=== PATIENT | male | born 1955 | race Caucasian/White ===

== ENCOUNTER 2018-09-27 07:46 | Emergency (ER) | payer MEDICARE, MEDICAID ==
[2018-09-27] MEDS ORDERED: Sodium Chloride 0.9% 10 ML Syringe FLUSH PRN (07:59)
--- NOTE | 2018-09-27 08:22 | CT ---
[id number] CT/CT Head Stroke Protocol EXAM: CT Head Stroke Protocol CLINICAL DATA: STROKE. COMPARISON STUDY: None FINDINGS: No intracranial hemorrhage, extra-axial fluid collection, mass, or acute ischemia. No hydrocephalus. Mild polyploid mucosal thickening in the anterior aspect of the right maxillary sinus. Mastoid air cells middle ear cavities are clear. IMPRESSION: No acute intracranial findings. Results relayed to Dr. Bryant at time of dictation. Nasim Ovalle MD 09/27/18 0819 Thank you for allowing us to participate in the care of your patient.
[2018-09-27 08:56] LABS: CHLORIDE,CL 101 mmol/L (98-107); SODIUM,NA 141 mmol/L (136-145)
[2018-09-27 08:57] LABS: ANION GAP 10.6 mmol/L (10-20)
--- NOTE | 2018-09-27 09:02 | EDM.PDOC ---
ED HPI GENERAL MEDICAL PROBLEM - General Chief Complaint: Neuro Symptoms/Deficits Stated Complaint: WEAKNESS Time Seen by Provider: 09/27/18 07:59 Source of Information: Reports: Patient History Limitations: Reports: Other (paranoia) - History of Present Illness INITIAL COMMENTS - FREE TEXT/NARRATIVE: Patient presents with complaints of weakness, slurred speech, facial droop. All of these symptoms were not present on his arrival. Also complains of what he described as explosions in his head. Also complained of staff at the care center "poisoning" him. He does have extensive history of schizoaffective disorder. No chest pain, abdominal pain, sob, blood in urine or stools. Denies any other complaints. States he does not want to go back to the care center. Onset: Gradual Chest Pain Score (Numeric/FACES): 6 - Related Data Allergies Allergy/AdvReac Type Severity Reaction Status Date / Time clozapine [From Clozaril] Allergy Shaking Verified 09/27/18 08:59 gabapentin Allergy Rash Verified 09/27/18 08:59 risperidone AdvReac Other Verified 09/27/18 08:59 Home Meds: Home Meds Acetaminophen [Tylenol Arthritis] 1,300 mg PO BID 09/27/18 [History] Aripiprazole Lauroxil [Aristada] 882 mg IM Q42D 09/27/18 [History] Bisacodyl [Dulcolax] 5 mg PO DAILY PRN 09/27/18 [History] Furosemide 40 mg PO DAILY 09/27/18 [History] Hydrocodone/Acetaminophen [Hydrocodon-Acetaminophen 5-325] 1 tab PO TID [History] Loperamide HCl [Imodium A-D] 2 mg PO ASDIRECTED PRN MDD 8mg in 24 hours [History] Nystatin [Nyamyc] 1 applic TOP BID PRN 09/27/18 [History] Paliperidone [Paliperidone ER] 1.5 mg PO DAILY 09/27/18 [History] Polyethylene Glycol 3350 [MiraLAX] 17 gm PO DAILY 09/27/18 [History] Pregabalin [Lyrica] 200 mg PO TID 09/27/18 [History] Sennosides/Docusate Sodium [Senna Plus Tablet] 1 tab PO DAILY 09/27/18 [History] Tamsulosin HCl [Flomax] 0.4 mg PO DAILY 09/27/18 [History] atorvaSTATin [Lipitor] 10 mg PO BEDTIME 09/27/18 [History] busPIRone [Buspar] 10 mg PO TID 09/27/18 [History] metOLazone [Metolazone] 2.5 mg PO MOWEFR@0800 09/27/18 [History] traZODone HCl [Trazodone HCl] 50 mg PO DAILY 09/27/18 [History] ED ROS GENERAL - Review of Systems Review Of Systems: See Below Constitutional: Reports: Weakness HEENT: Reports: No Symptoms ED EXAM, GENERAL - Physical Exam Exam: See Below Exam Limited By: Other (paranoia) General Appearance: Alert, WD/WN, No Apparent Distress Eye Exam: Bilateral Eye: EOMI, Normal Inspection, PERRL Ears: Normal TMs Nose: Normal Inspection, Normal Mucosa, No Blood Throat/Mouth: Normal Inspection, Normal Lips, Normal Teeth, Normal Gums, Normal Oropharynx, Normal Voice, No Airway Compromise Head: Atraumatic, Normocephalic Neck: Normal Inspection, Supple, Non-Tender, Full Range of Motion Respiratory/Chest: No Respiratory Distress, Lungs Clear, Normal Breath Sounds, No Accessory Muscle Use, Chest Non-Tender Cardiovascular: Normal Peripheral Pulses, No Gallop, No Murmur, Tachycardia Peripheral Pulses: 1+: Posterior Tibial (L), Posterior Tibial (R), Dorsalis Pedis (L), Dorsalis Pedis (R) GI/Abdominal: Normal Bowel Sounds, Soft, Non-Tender, No Organomegaly, No Distention, No Abnormal Bruit, No Mass Back Exam: Normal Inspection, Full Range of Motion, NT Extremities: Normal Range of Motion, Non-Tender, Normal Capillary Refill, Pedal Edema (2-3+) Neurological: Alert, Oriented, CN II-XII Intact, Normal Cognition, Normal Gait, No Motor/Sensory Deficits Psychiatric: Other (paranoid) Skin Exam: Erythema (bilateral lower legs) Lymphatic: No Adenopathy EKG INTERPRETATION EKG Date: 09/27/18 Time: 08:14 Rhythm: Other (sinus tach) Rate (Beats/Min): 105 [place]: Normal P-Wave: Present QRS: Normal ST-T: Normal QT: Normal Comparison: NA - No Prior EKG Course - Vital Signs Last Recorded V/S: Last Vital Signs Temp 36.6 C 09/27/18 08:00 Pulse 106 H 09/27/18 08:00 Resp 18 09/27/18 08:00 BP 141/72 H 09/27/18 08:00 Pulse Ox 95 09/27/18 08:00 - Orders/Labs/Meds Orders: Active Orders 24 hr Category Date Time Status EKG Documentation Completion [RC] STAT Care 09/27/18 07:59 Active Sodium Chloride 0.9% [Saline Flush] Med 09/27/18 07:59 Active 10 ml FLUSH ASDIRECTED PRN Saline Lock Insert [OM.PC] Routine Oth 09/27/18 07:59 Ordered Medication Orders Sodium Chloride (Saline Flush) 10 ml FLUSH ASDIRECTED PRN PRN Reason: Keep Vein Open Labs: Laboratory Tests 09/27/18 09/27/18 09/27/18 Range/Units 08:00 08:18 08:18 WBC 6.6 (4.0-10.0) x10^3/uL RBC 4.31 L (4.5-6.0) x10^6/uL Hgb 13.7 L (14.0-18.0) g/dL Hct 40.6 (40.0-52.0) % MCV 94.2 H (78.0-93.0) fL MCH 31.8 (26.0-32.0) pg MCHC 33.7 (32.0-36.0) g/dL RDW Coeff of Damon 12.8 (10.0-15.0) % Plt Count 262 (130-400) x10^3/uL Neut % (Auto) 64.6 (50.0-80.0) % Lymph % (Auto) 25.1 (25.0-50.0) % Bled[place]e % (Auto) 8.3 (2.0-11.0) % Eos % (Auto) 1.5 (0.0-4.0) % Baso % (Auto) 0.5 (0.2-1.2) % PT 10.0 (10.0-12.8) SEC INR 0.9 L (2.0-3.5) Sodium (136-145) mmol/L Potassium (3.5-5.1) mmol/L Chloride (98-107) mmol/L Carbon Dioxide (21-32) mmol/L Anion Gap (10-20) mmol/L BUN (7-18) mg/dL Creatinine (0.70-1.30) mg/dL Est Cr Clr Drug Dosing Estimated GFR (MDRD) Glucose (74-106) mg/dL POC Glucose 130 H (74-106) mg/dL Calcium (8.5-10.1) mg/dL Corrected Calcium (8.5-10.1) mg/dL Magnesium (1.8-2.4) mg/dL Total Bilirubin (0.2-1.0) mg/dL AST (15-37) U/L ALT (16-63) U/L Alkaline Phosphatase (46-116) U/L POC Troponin I (0.00-0.08) ng/mL C-Reactive Protein (<=0.9) mg/dL NT-Pro-B Natriuret Pep (<=125) pg/mL Total Protein (6.4-8.2) g/dL Albumin (3.4-5.0) g/dL Globulin Albumin/Globulin Ratio TSH, Ultra Sensitive (0.358-3.74) uIU/mL Urine Color (YELLOW) Urine Appearance (CLEAR) Urine pH (5.0-8.0) Ur Specific [place] Urine Protein (NEGATIVE) mg/dL Urine Glucose (UA) (NEGATIVE) mg/dL Urine Ketones (NEGATIVE) mg/dL Urine Occult Blood (NEGATIVE) Urine Nitrite (NEGATIVE) Urine Bilirubin (NEGATIVE) Urine Urobilinogen (0.2) EU/dL Ur Leukocyte Esterase (NEGATIVE) Urine RBC (NOT SEEN) /HPF Urine WBC (NOT SEEN) /HPF Ur Squamous Epith Cells (NEGATIVE) /HPF Urine Bacteria (NEGATIVE) /HPF Urine Mucus (NEGATIVE) /LPF 09/27/18 09/27/18 09/27/18 Range/Units 08:18 08:24 08:45 WBC (4.0-10.0) x10^3/uL RBC (4.5-6.0) x10^6/uL Hgb (14.0-18.0) g/dL Hct (40.0-52.0) % MCV (78.0-93.0) fL MCH (26.0-32.0) pg MCHC (32.0-36.0) g/dL RDW Coeff of Damon (10.0-15.0) % Plt Count (130-400) x10^3/uL Neut % (Auto) (50.0-80.0) % Lymph % (Auto) (25.0-50.0) % [place]so[place] % (Auto) (2.0-11.0) % Eos % (Auto) (0.0-4.0) % Baso % (Auto) (0.2-1.2) % PT (10.0-12.8) SEC INR (2.0-3.5) Sodium 141 (136-145) mmol/L Potassium 3.6 (3.5-5.1) mmol/L Chloride 101 (98-107) mmol/L Carbon Dioxide 33 H (21-32) mmol/L Anion Gap 10.6 (10-20) mmol/L BUN 25 H (7-18) mg/dL Creatinine 1.0 (0.70-1.30) mg/dL Est Cr Clr Drug Dosing TNP Estimated GFR (MDRD) > 60 Glucose 131 H (74-106) mg/dL POC Glucose (74-106) mg/dL Calcium 8.8 (8.5-10.1) mg/dL Corrected Calcium 9.36 (8.5-10.1) mg/dL Magnesium 2.2 (1.8-2.4) mg/dL Total Bilirubin 0.3 (0.2-1.0) mg/dL AST 19 (15-37) U/L ALT 25 (16-63) U/L Alkaline Phosphatase 65 (46-116) U/L POC Troponin I 0.00 (0.00-0.08) ng/mL C-Reactive Protein 1.8 H (<=0.9) mg/dL NT-Pro-B Natriuret Pep 26 (<=125) pg/mL Total Protein 6.5 (6.4-8.2) g/dL Albumin 3.3 L (3.4-5.0) g/dL Globulin 3.2 Albumin/Globulin Ratio 1.03 TSH, Ultra Sensitive 1.533 (0.358-3.74) uIU/mL Urine Color Yellow (YELLOW) Urine Appearance Clear (CLEAR) Urine pH 7.0 (5.0-8.0) Ur Specific [place] 1.015 Urine Protein Negative (NEGATIVE) mg/dL Urine Glucose (UA) Negative (NEGATIVE) mg/dL Urine Ketones Negative (NEGATIVE) mg/dL Urine Occult Blood Trace-intact H (NEGATIVE) Urine Nitrite Negative (NEGATIVE) Urine Bilirubin Negative (NEGATIVE) Urine Urobilinogen 1.0 (0.2) EU/dL Ur Leukocyte Esterase Negative (NEGATIVE) Urine RBC 5-10 H (NOT SEEN) /HPF Urine WBC 0-5 (NOT SEEN) /HPF Ur Squamous Epith Cells Occasional H (NEGATIVE) /HPF Urine Bacteria Not seen (NEGATIVE) /HPF Urine Mucus Occasional H (NEGATIVE) /LPF Meds: Medications Generic Name Dose Route Start Last Admin Trade Name Freq PRN Reason Stop Dose Admin Sodium Chloride 10 ml 09/27/18 07:59 Saline Flush FLUSH ASDIRECTED PRN Keep Vein Open Departure - Departure Time of Disposition: 10:43 Disposition: DC/Tfer to SNF 03 Condition: Fair Clinical Impression: Drug interaction, Acute paranoia - Discharge Information *PRESCRIPTION DRUG MONITORING PROGRAM REVIEWED*: Not Applicable *COPY OF PRESCRIPTION DRUG MONITORING REPORT IN PATIENT [place]: Not Applicable Instructions: Basics of Medicine Management Forms: ED Department Discharge Additional Instructions: Plan Schedule an appointment with Dr. Rodriguez for any placement issues Talk with Dr. Rodriguez regarding medication interactions Your labs here were normal, as was your head CT. Staff can call at any time if there are any additional questions or concerns ED Communication - ED Communication Date/Time Date: 09/27/18 Time Called: 08:40 - Discussed Case With (1) Discussed Case With (1): Other (Patient's primary physician contacted and given report. Will not treat for TIA due to non symptomatic history and physical. [facility] hospital screener also contacted. Not candidate for direct admission. Guardian services also contacted and she did manage to get him to agree to return to Care Center. Patient reassured that he is not getting poisoned.) - Problem List & Annotations (1) Drug interaction SNOMED Code(s): 97102060 Code(s): Z78.9 - OTHER SPECIFIED HEALTH STATUS Status: Acute Priority: Low Current Visit: Yes - Problem List Review Problem List Initiated/Reviewed/Updated: Yes - My Orders Last 24 Hours: My Active Orders 09/27/18 07:59 EKG Documentation Completion [RC] STAT Sodium Chloride 0.9% [Saline Flush] 10 ml FLUSH ASDIRECTED PRN Saline Lock Insert [OM.PC] Routine - Assessment/Plan Last 24 Hours: My Active Orders 09/27/18 07:59 EKG Documentation Completion [RC] STAT Sodium Chloride 0.9% [Saline Flush] 10 ml FLUSH ASDIRECTED PRN Saline Lock Insert [OM.PC] Routine Assessment:: drug interaction paranoia Plan: Plan Schedule an appointment with Dr. Rodriguez for any placement issues Talk with Dr. Rodriguez regarding medication interactions Your labs here were normal, as was your head CT. Staff can call at any time if there are any additional questions or concerns
== END 2018-09-27 10:43 ==
LOC: VM.ED 07:46 → SUPCPDRO 07:46 → VM.ED 10:43
DX: F22 Delusional disorders (principal); Z78.9 Other specified health status; Z88.8 Allergy status to other drugs, medicaments and biological substances; Z79.899 Other long term (current) drug therapy; R29.810 Facial weakness
CPT/HCPCS: 70450; 80053; 81001; 82962; 83735; 83880; 84443; 84484; 85025; 85610; 86140; 93005; 93010; 99283-GF; 99285-25

== ENCOUNTER 2018-10-12 10:35 | Emergency (ER) | payer MEDICARE, MEDICAID ==
[2018-10-12 11:33] LABS: CHLORIDE,CL 102 mmol/L (98-107); SODIUM,NA 142 mmol/L (136-145)
[2018-10-12 11:34] LABS: ANION GAP 12.3 mmol/L (10-20)
--- NOTE | 2018-10-12 11:42 | CR ---
[id number] RAD/RAD Chest PA or AP 1V EXAM: RAD Chest PA or AP 1V INDICATION: Chest pain. COMPARISON: None. DISCUSSION: Cardiomegaly and central vascular congestion. No infiltrate, effusion, pneumothorax, or edema within limitation of beam attenuation artifact from patient body habitus. IMPRESSION: No acute findings. Nasim Ovalle MD 10/12/18 1141 Thank you for allowing us to participate in the care of your patient.
--- NOTE | 2018-10-12 16:52 | EDM.PDOC ---
ED HPI GENERAL MEDICAL PROBLEM - General Chief Complaint: Chest Pain Stated Complaint: CHEST PAIN Time Seen by Provider: 10/12/18 10:35 Source of Information: Reports: Patient History Limitations: Reports: No Limitations - History of Present Illness INITIAL COMMENTS - FREE TEXT/NARRATIVE: Pt. presents to ER from clinic. He is a resident at [facility]. He was sent to clinic for possible cellulitis to his extremities and stated that he was having chest pain so he was sent to the ER. Pt. states that he has been experiencing intermittent, L anterior reproducible, respirophasic chest pain for some time. He states that this discomfort is worse with movement, deep breathing, and palpation. He states that it is sharp, point tenderness to L anterior chest. Pt. denies any shortness of breath. No fever or chills. Denies any cough or chest congestion. Pt. has been having problem with severe edema on his lower extremities. Nursing staff is concerned that he may have a cellulitis in the LLE below the knee. Apparently the skin is more erythematous than normal. In reviewing his chart, it appears that Dr. Rodriguez has seen him for similar complaints in the clinic. He is on lasix 40mg daily and metolazone 2.5mg daily, as well as spironolactone 25 mg daily. This has not helped with the symptoms. He has been trying to wrap his legs but they were absent today. Pt. body habitus does not allow for LILI hose use. Pt. has had labs recently, and his heart and kidney functions appears to be normal. Likely cause of the edema is obesity related lymphedema. Onset: Today Onset Date: 10/13/18 Location: Reports: Chest, Lower Extremity, Left, Lower Extremity, Right Quality: Reports: Ache Left Chest Pain Score (Numeric/FACES): 5 - Related Data Allergies Allergy/AdvReac Type Severity Reaction Status Date / Time clozapine [From Clozaril] Allergy Shaking Verified 10/12/18 11:07 gabapentin Allergy Rash Verified 10/12/18 11:07 risperidone AdvReac Other Verified 10/12/18 11:07 Home Meds: Home Meds Acetaminophen [Tylenol Arthritis] 1,300 mg PO BID 09/27/18 [History] Aripiprazole Lauroxil [Aristada] 882 mg IM Q42D 09/27/18 [History] Bisacodyl [Dulcolax] 5 mg PO DAILY PRN 09/27/18 [History] Furosemide 40 mg PO DAILY 09/27/18 [History] Hydrocodone/Acetaminophen [Hydrocodon-Acetaminophen 5-325] 1 tab PO QID [History] Loperamide HCl [Imodium A-D] 2 mg PO ASDIRECTED PRN MDD 8mg in 24 hours [History] Nystatin [Nyamyc] 1 applic TOP BID PRN 09/27/18 [History] Paliperidone [Paliperidone ER] 6 mg PO DAILY 09/27/18 [History] Polyethylene Glycol 3350 [MiraLAX] 17 gm PO DAILY 09/27/18 [History] Pregabalin [Lyrica] 200 mg PO TID 09/27/18 [History] Sennosides/Docusate Sodium [Senna Plus Tablet] 1 tab PO DAILY 09/27/18 [History] Tamsulosin HCl [Flomax] 0.4 mg PO DAILY 09/27/18 [History] atorvaSTATin [Lipitor] 10 mg PO BEDTIME 09/27/18 [History] busPIRone [Buspar] 10 mg PO TID 09/27/18 [History] metOLazone [Metolazone] 2.5 mg PO MOWEFR@0800 09/27/18 [History] traZODone HCl [Trazodone HCl] 50 mg PO DAILY 09/27/18 [History] Spironolactone [Aldactone] 25 mg PO DAILY 10/12/18 [History] metOLazone [Metolazone] 2.5 mg PO ASDIRECTED 10/12/18 [History] Past Medical History Cardiovascular History: Reports: High Cholesterol, Hypertension Gastrointestinal History: Reports: Chronic Constipation Musculoskeletal History: Reports: Back Pain, Chronic, Osteoarthritis Psychiatric History: Reports: Addiction, Anxiety, Psychosis, Schizophrenia Other Psychiatric History: personality disorder Social & Family History - Tobacco Use Smoking Status *Q: Unknown Ever Smoked ED ROS GENERAL - Review of Systems Review Of Systems: See Below Constitutional: Reports: Fatigue (chronically fatigued). Denies: Fever, Chills HEENT: Reports: No Symptoms Respiratory: Reports: Pleuritic Chest Pain. Denies: Cough, Sputum Cardiovascular: Reports: Chest Pain. Denies: Dyspnea on Exertion, Palpitations , PND, Syncope Endocrine: Reports: No Symptoms GI/Abdominal: Reports: No Symptoms : Reports: No Symptoms Musculoskeletal: Reports: Other (See above) Skin: Reports: Erythema Neurological: Reports: No Symptoms Psychiatric: Reports: No Symptoms Hematologic/Lymphatic: Reports: No Symptoms ED EXAM, GENERAL - Physical Exam Exam: See Below Exam Limited By: No Limitations General Appearance: Alert, WD/WN, No Apparent Distress Neck: Normal Inspection, Supple, Non-Tender, Full Range of Motion Respiratory/Chest: No Respiratory Distress, Lungs Clear, Normal Breath Sounds, No Accessory Muscle Use, Other (tenderness to L anterior chest) Cardiovascular: Normal Peripheral Pulses, Regular Rate, Rhythm, No Edema, No JVD , No Murmur, No Rub Peripheral Pulses: 1+: Posterior Tibial (L), Posterior Tibial (R), 4+: Radial (L ) Back Exam: Normal Inspection, Full Range of Motion Extremities: Other (massive lymphedema. Erythema from mid calf down, with no open lesions. L leg mildly more erythematous and warm.) Neurological: Alert, Oriented, CN II-XII Intact, Normal Cognition EKG INTERPRETATION Rhythm: NSR [place]: Normal P-Wave: Present QRS: Normal ST-T: Normal QT: Normal Course - Vital Signs Last Recorded V/S: Last Vital Signs Temp 36.4 C 10/12/18 10:35 Pulse 94 10/12/18 10:35 Resp 20 10/12/18 10:35 BP 147/93 H 10/12/18 10:35 Pulse Ox 95 10/12/18 10:35 - Orders/Labs/Meds Orders: Active Orders 24 hr Category Date Time Status EKG Documentation Completion [RC] STAT Care 10/12/18 10:45 Active Labs: Laboratory Tests 10/12/18 10/12/18 10/12/18 Range/Units 10:58 10:58 10:58 WBC 6.5 (4.0-10.0) x10^3/uL RBC 4.34 L (4.5-6.0) x10^6/uL Hgb 13.8 L (14.0-18.0) g/dL Hct 41.3 (40.0-52.0) % MCV 95.2 H (78.0-93.0) fL MCH 31.8 (26.0-32.0) pg MCHC 33.4 (32.0-36.0) g/dL RDW Coeff of Damon 13.3 (10.0-15.0) % Plt Count 254 (130-400) x10^3/uL Neut % (Auto) 65.9 (50.0-80.0) % Lymph % (Auto) 24.8 L (25.0-50.0) % [place] % (Auto) 7.6 (2.0-11.0) % Eos % (Auto) 1.4 (0.0-4.0) % Baso % (Auto) 0.3 (0.2-1.2) % PT 9.9 L (10.0-12.8) SEC INR 0.9 L (2.0-3.5) Sodium 142 (136-145) mmol/L Potassium 4.3 (3.5-5.1) mmol/L Chloride 102 (98-107) mmol/L Carbon Dioxide 32 (21-32) mmol/L Anion Gap 12.3 (10-20) mmol/L BUN 25 H (7-18) mg/dL Creatinine 1.1 (0.70-1.30) mg/dL Est Cr Clr Drug Dosing TNP Estimated GFR (MDRD) > 60 Glucose 117 H (74-106) mg/dL Calcium 8.7 (8.5-10.1) mg/dL Corrected Calcium 9.26 (8.5-10.1) mg/dL Total Bilirubin 0.3 (0.2-1.0) mg/dL AST 16 (15-37) U/L ALT 27 (16-63) U/L Alkaline Phosphatase 68 (46-116) U/L Troponin I < 0.017 (<=0.056) ng/mL C-Reactive Protein 1.7 H (<=0.9) mg/dL NT-Pro-B Natriuret Pep 41 (<=125) pg/mL Total Protein 7.0 (6.4-8.2) g/dL Albumin 3.3 L (3.4-5.0) g/dL Globulin 3.7 Albumin/Globulin Ratio 0.89 - Radiology Interpretation Free Text/Narrative:: chest x-ray negative for acute pathology Departure - Departure Time of Disposition: 12:30 Disposition: DC/Tfer to [facility] Clinical Impression: Atypical chest pain, Cellulitis - Discharge Information Instructions: Cellulitis, Adult, [id number], Lymphedema, Cephalexin tablets or capsules, Probiotics Referrals: Olvin Rodriguez MD [Primary Care Provider] - Forms: ED Department Discharge Additional Instructions: Start Keflex 500mg 4 times daily for 10 days Wrap legs. Continue with current medications at current dosages. Recheck in clinic in 10-[address] Rodriguez. - My Orders Last 24 Hours: My Active Orders 10/12/18 10:45 EKG Documentation Completion [RC] STAT - Assessment/Plan Last 24 Hours: My Active Orders 10/12/18 10:45 EKG Documentation Completion [RC] STAT Plan: Start Keflex 500mg 4 times daily for 10 days Wrap legs. Continue with current medications at current dosages. Recheck in clinic in 10-[address] Rodriguez.
== END 2018-10-12 11:49 ==
LOC: VM.ED 10:35
DX: R07.89 Other chest pain (principal); L03.116 Cellulitis of left lower limb; I10 Essential (primary) hypertension; M19.90 Unspecified osteoarthritis, unspecified site; F41.9 Anxiety disorder, unspecified; Z88.8 Allergy status to other drugs, medicaments and biological substances; Z79.899 Other long term (current) drug therapy
CPT/HCPCS: 36415; 71045; 80053; 83880; 84484; 85025; 85610; 86140; 93005; 93010; 99284-GF; 99285-25

== ENCOUNTER 2018-11-02 07:56 | Emergency (ER) | payer MEDICARE, MEDICAID ==
[2018-11-02] MEDS ORDERED: Acetaminophen 500 MG Tab PO ONE (08:35)
--- NOTE | 2018-11-02 08:45 | EDM.PDOC ---
ED HPI GENERAL MEDICAL PROBLEM - General Chief Complaint: Syncope Stated Complaint: lightheadedness Time Seen by Provider: 11/02/18 08:05 Source of Information: Reports: Patient History Limitations: Reports: No Limitations - History of Present Illness INITIAL COMMENTS - FREE TEXT/NARRATIVE: Patient states this morning at assisted living care who got up fixed cup coffee about 20 minutes later he got lightheaded states she has had this before a few times he was just in here a month ago the same exact thing in the ER. States his symptoms are always same first thing in the morning. They last anywhere from 20 minutes to an hour limit resolve spontaneously. States he did not want come this morning but the prison made him come he does not want any lab work or workup done this morning he has no other complaints at this time. No chest pain shortness of breath vomiting abdominal pain dizziness or vision changes states he feels fine overall Duration: Hour(s): Severity: Mild Improves with: Reports: None Associated Symptoms: Reports: Headaches, Other (O by the way patient does have a headache but a 3 out of 10 generalized states he gets chronic headaches couple days a week usually go away by the hour after drinking coffee he also has chronic back pain rated a 9 out of 10 this point is not a daily pain meds) Treatments [employer]: Denies: Acetaminophen, Aspirin, NSAIDS - Related Data Allergies Allergy/AdvReac Type Severity Reaction Status Date / Time clozapine [From Clozaril] Allergy Shaking Verified 11/02/18 08:28 gabapentin Allergy Rash Verified 11/02/18 08:28 risedronate sodium Allergy Other Verified 11/02/18 08:28 risperidone AdvReac Other Verified 11/02/18 08:28 Home Meds: Home Meds Acetaminophen [Tylenol Arthritis] 1,300 mg PO BID 09/27/18 [History] Aripiprazole Lauroxil [Aristada] 882 mg IM Q42D 09/27/18 [History] Furosemide 40 mg PO DAILY 09/27/18 [History] Hydrocodone/Acetaminophen [Hydrocodon-Acetaminophen 5-325] 1 tab PO TID [History] Paliperidone [Paliperidone ER] 6 mg PO DAILY 09/27/18 [History] Polyethylene Glycol 3350 [MiraLAX] 17 gm PO DAILY 09/27/18 [History] Pregabalin [Lyrica] 200 mg PO TID 09/27/18 [History] Tamsulosin HCl [Flomax] 0.4 mg PO BEDTIME 09/27/18 [History] atorvaSTATin [Lipitor] 10 mg PO BEDTIME 09/27/18 [History] busPIRone [Buspar] 10 mg PO TID 09/27/18 [History] metOLazone [Metolazone] 2.5 mg PO MOWEFR@0800 09/27/18 [History] traZODone HCl [Trazodone HCl] 50 mg PO DAILY 09/27/18 [History] ARIPiprazole [Abilify] 30 mg PO BEDTIME 10/17/18 [History] Acetaminophen [Arthritis Pain Relief] 1,300 mg PO DAILY PRN 10/17/18 [History] Docusate Sodium 100 mg PO BID 10/17/18 [History] Ibuprofen 200 - 600 mg PO Q6H PRN 10/17/18 [History] LORazepam 1 mg PO QID 10/17/18 [History] Naproxen 500 mg PO BID 10/17/18 [History] Psyllium Husk [Metamucil] 17 gm PO DAILY 10/17/18 [History] Past Medical History Cardiovascular History: Reports: High Cholesterol, Hypertension Gastrointestinal History: Reports: Chronic Constipation Musculoskeletal History: Reports: Back Pain, Chronic, Osteoarthritis Psychiatric History: Reports: Addiction, Anxiety, Psychosis, Schizophrenia Other Psychiatric History: personality disorder ED ROS GENERAL - Review of Systems Review Of Systems: See Below Constitutional: Denies: Fever, Chills, Malaise, Weakness, Fatigue, Diaphoresis HEENT: Reports: No Symptoms Respiratory: Reports: No Symptoms Cardiovascular: Reports: Lightheadedness, Other ( complaint from the prison that patient was hypotensive with the 90s but upon EMS arrival he was normotensive). Denies: Chest Pain, Blood Pressure Problem, Claudication, Dyspnea on Exertion, Edema, Orthopnea, Palpitations, PND, Syncope Endocrine: Reports: No Symptoms GI/Abdominal: Reports: No Symptoms : Reports: No Symptoms Musculoskeletal: Reports: Back Pain (Chronic) Skin: Reports: No Symptoms Neurological: Reports: Headache (Dull generalized no change from prior headaches not the worst headache overall of his life no vision changes no weakness states this occurs several mornings out of the week clears up after a cup of coffee and morning meds). Denies: Confusion, Dizziness, Seizure, Syncope , Difficulty Walking Psychiatric: Reports: No Symptoms Hematologic/Lymphatic: Reports: No Symptoms Immunologic: Reports: No Symptoms ED EXAM, DIZZINESS - Physical Exam Exam: See Below Exam Limited By: No Limitations General Appearance: Alert, WD/WN, No Apparent Distress Eye Exam: Bilateral Eye: EOMI, PERRL Ears: Normal External Exam, Normal Canal, Hearing Grossly Normal, Normal TMs Nose: Normal Inspection, Normal Mucosa, No Blood Throat/Mouth: Normal Inspection, Normal Lips, Normal Teeth, Normal Gums, Normal Oropharynx, Normal Voice, No Airway Compromise Head Exam: Atraumatic, Normocephalic Vertigo: No: worsens with head to L, worsens with head to R, reproducible Neck: Normal Inspection, Supple, Non-Tender, Full Range of Motion Respiratory/Chest: No Respiratory Distress, Lungs Clear, Normal Breath Sounds, No Accessory Muscle Use, Chest Non-Tender Cardiovascular: Normal Peripheral Pulses, Regular Rate, Rhythm, No Edema, No Gallop, No JVD, No Murmur, No Rub GI/Abdominal: Normal Bowel Sounds, Soft, Non-Tender, No Organomegaly, No Distention Neurological: Alert, Normal Mood/Affect, Normal Dorsiflexion, CN II-XII Intact, Normal Plantar Flexion (Cranial nerve II through XII intact, 5/5 strength upper and lower extremities bilateral 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), Normal Gait , Normal Reflexes, No Motor/Sensory Deficits, Oriented x 3 Back Exam: Normal Inspection, Full Range of Motion Extremities: Normal Inspection, Normal Range of Motion, Non-Tender, No Pedal Edema Psychiatric: Normal Affect, Normal Mood Skin Exam: Warm, Dry, Intact, Normal Color, No Rash Course - Vital Signs Text/Narrative:: Patient refused care and further workup such as lab further testing states he only wishes to go home explain risks benefits patient still no further workup just wanted to go back [facility] prison - Orders/Labs/Meds Orders: Active Orders 24 hr Category Date Time Status EKG 12 Lead [EKG Documentation Completion] [RC] STAT Care 11/02/18 08:34 Ordered BASIC METABOLIC PANEL,BMP [CHEM] Stat Lab 11/02/18 08:34 Ordered CBC WITH AUTO DIFF [HEME] Stat Lab 11/02/18 08:34 Ordered Meds: Medications Discontinued Medications Generic Name Dose Route Start Last Admin Trade Name Freq PRN Reason Stop Dose Admin Acetaminophen 1,000 mg 11/02/18 08:35 Tylenol Extra Strength PO 11/02/18 08:36 ONETIME ONE Departure - Departure Time of Disposition: 08:50 Disposition: Home, Self-Care 01 Condition: Good Clinical Impression: Lightheadedness - Discharge Information *PRESCRIPTION DRUG MONITORING PROGRAM REVIEWED*: No *COPY OF PRESCRIPTION DRUG MONITORING REPORT IN PATIENT [place]: No - My Orders Last 24 Hours: My Active Orders 11/02/18 08:34 EKG 12 Lead [EKG Documentation Completion] [RC] STAT BASIC METABOLIC PANEL,BMP [CHEM] Stat CBC WITH AUTO DIFF [HEME] Stat - Assessment/Plan Last 24 Hours: My Active Orders 11/02/18 08:34 EKG 12 Lead [EKG Documentation Completion] [RC] STAT BASIC METABOLIC PANEL,BMP [CHEM] Stat CBC WITH AUTO DIFF [HEME] Stat
== END 2018-11-02 09:30 | disposition home or self-care (01) ==
LOC: VM.ED 07:56
DX: R42 Dizziness and giddiness (principal); I10 Essential (primary) hypertension; F41.9 Anxiety disorder, unspecified; F20.9 Schizophrenia, unspecified; Z88.8 Allergy status to other drugs, medicaments and biological substances; Z79.899 Other long term (current) drug therapy
CPT/HCPCS: 93005; 99284-25

== ENCOUNTER 2022-03-28 11:45 | Emergency (ER) | payer MEDICARE, MEDICAID ==
[2022-03-28 13:44] LABS: ANION GAP 11.4 mmol/L (5-15); CHLORIDE,CL 100 mmol/L (98-107); ESTIMATED GFR 61 mL/min (>=60); SODIUM,NA 138 mmol/L (136-145)
[2022-03-28] MEDS: Morphine 2 MG/ML SYRINGE IVPUSH ONE (13:59)
== END 2022-03-28 15:46 ==
LOC: VM.ED 11:45
DX: M79.661 Pain in right lower leg (principal); E78.00 Pure hypercholesterolemia, unspecified; I10 Essential (primary) hypertension; M19.90 Unspecified osteoarthritis, unspecified site; Z88.8 Allergy status to other drugs, medicaments and biological substances; Z79.899 Other long term (current) drug therapy; Z20.822 Contact with and (suspected) exposure to COVID-19
CPT/HCPCS: 36415; 80053; 85025; 85379; 85610; 87040; 96374; 99283-25; 99284; J2270; U0002

== ENCOUNTER 2023-09-01 01:05 | Emergency (ER) | payer MEDICARE, MEDICAID ==
[2023-09-01 01:32] LABS: BASOPHILS PERCENT AUTO 0.2 % (0.2-1.2); EOSINOPHILS ABSOLUTE AUTO 0.1 x10^3/uL (0.0-0.5); EOSINOPHILS PERCENT AUTO 1.2 % (0.0-4.0); HEMATOCRIT 38.1 % (40.0-52.0); HEMOGLOBIN 12.9 g/dL (14.0-18.0); IMMATURE GRAN ABSOLUTE AUTO 0.02 x10^3/uL (0.00-0.07); LYMPHOCYTES ABSOLUTE AUTO 2.5 x10^3/uL (1.0-4.8); LYMPHOCYTES PERCENT AUTO 22.1 % (25.0-50.0); MEAN CORPUSCULAR HGB CONC 33.9 g/dL (32.0-36.0); MEAN CORPUSCULAR VOLUME 91.6 fL (78.0-93.0); MONOCYTES ABSOLUTE AUTO 0.7 x10^3/uL (0.0-0.8); MONOCYTES PERCENT AUTO 5.9 % (2.0-11.0); NEUTROPHILS ABSOLUTE AUTO 7.8 x10^3/uL (1.8-7.7); NEUTROPHILS PERCENT AUTO 70.4 % (50.0-80.0); PLATELET COUNT,PLT 287 x10^3/uL (130-400); RED BLOOD CELL COUNT 4.16 x10^6/uL (4.5-6.0); WHITE BLOOD CELL COUNT,WBC 11.1 x10^3/uL (4.0-10.0)
[2023-09-01 01:45] LABS: CALCIUM 9.3 mg/dL (8.5-10.1); CREATININE 1.8 mg/dL (0.70-1.30); EST CRCL DRUG DOSING (CG) 39.06 mL/min; POTASSIUM,K 4.2 mmol/L (3.5-5.1)
[2023-09-01 01:46] LABS: ANION GAP 11.2 mmol/L (5-15)
[2023-09-01] MEDS: Acetaminophen/oxyCODONE 325-5 MG Tab PO ONE (02:32)
== END 2023-09-01 03:25 ==
LOC: VM.ED 01:05
DX: R07.2 Precordial pain (principal); M25.561 Pain in right knee; M25.562 Pain in left knee; M25.551 Pain in right hip; I10 Essential (primary) hypertension; E78.00 Pure hypercholesterolemia, unspecified; E11.9 Type 2 diabetes mellitus without complications; Z88.8 Allergy status to other drugs, medicaments and biological substances; Z88.1 Allergy status to other antibiotic agents; Z79.899 Other long term (current) drug therapy
CPT/HCPCS: 36415; 71045; 73501; 73560; 80048; 84484; 85025; 99285; A9270

== ENCOUNTER 2023-10-21 17:39 | Inpatient (IN) | payer MEDICARE, MEDICAID ==
[2023-10-21] MEDS: cefTRIAXone 1 GM Vial IVPUSH ONE (19:29)
[2023-10-21] MEDS ORDERED: HYDROmorphone 0.5 MG/0.5 ML Syringe IVPUSH PRN (19:55)
[2023-10-21] MEDS ORDERED: Ondansetron 4 MG Tab.DIS PO PRN (19:55)
[2023-10-21] MEDS ORDERED: Ondansetron 4 MG/2 ML SDV IV PRN (19:55)
[2023-10-21] MEDS ORDERED: Bisacodyl 5 MG Tab PO PRN (20:56)
[2023-10-21] MEDS: Sodium Chloride 0.9% 1,000 ML IV SCH (21:14)
[2023-10-21] MEDS: Doxycycline Monohydrate 100 MG Cap PO SCH (21:14)
[2023-10-21] MEDS: Tamsulosin 0.4 MG Cap.ER PO SCH (21:14)
[2023-10-21] MEDS: Piperacillin/Tazobactam 4.5 GM in Sodium Chloride 0.9% 100 ML IV ONE (21:14)
[2023-10-21] MEDS: Pregabalin 50 MG Cap PO SCH (21:15)
[2023-10-21] MEDS: busPIRone 5 MG Tab PO SCH (21:15)
[2023-10-21] MEDS: Acetaminophen/HYDROcodone 325-5 MG Tab PO SCH (21:15)
[2023-10-21] MEDS: Acetaminophen 650 MG Tab.ER PO SCH (21:16)
[2023-10-22 06:51] LABS: BASOPHILS PERCENT AUTO 0.1 % (0.2-1.2); EOSINOPHILS ABSOLUTE AUTO 0.2 x10^3/uL (0.0-0.5); EOSINOPHILS PERCENT AUTO 1.9 % (0.0-4.0); HEMOGLOBIN 11.9 g/dL (14.0-18.0); IMMATURE GRAN ABSOLUTE AUTO 0.02 x10^3/uL (0.00-0.07); LYMPHOCYTES ABSOLUTE AUTO 1.6 x10^3/uL (1.0-4.8); LYMPHOCYTES PERCENT AUTO 13.2 % (25.0-50.0); MEAN CORPUSCULAR HEMOGLOBIN 30.5 pg (26.0-32.0); MEAN CORPUSCULAR HGB CONC 33.1 g/dL (32.0-36.0); MEAN CORPUSCULAR VOLUME 92.3 fL (78.0-93.0); MONOCYTES ABSOLUTE AUTO 0.7 x10^3/uL (0.0-0.8); MONOCYTES PERCENT AUTO 6.1 % (2.0-11.0); NEUTROPHILS ABSOLUTE AUTO 9.4 x10^3/uL (1.8-7.7); NEUTROPHILS PERCENT AUTO 78.5 % (50.0-80.0); PLATELET COUNT,PLT 343 x10^3/uL (130-400); WHITE BLOOD CELL COUNT,WBC 11.9 x10^3/uL (4.0-10.0)
[2023-10-22 07:04] LABS: CALCIUM 8.7 mg/dL (8.5-10.1); CREATININE 1.6 mg/dL (0.70-1.30); EST CRCL DRUG DOSING (CG) 45.41 mL/min; POTASSIUM,K 4.1 mmol/L (3.5-5.1)
[2023-10-22 07:05] LABS: ANION GAP 13.1 mmol/L (5-15)
[2023-10-22] MEDS: Polyethylene Glycol 3350 Powder 17 GM Packet PO SCH (09:09)
[2023-10-22] MEDS: Aspirin 81 MG Tab.Chew PO SCH (09:12)
[2023-10-22] MEDS: hydrOXYzine HCl 25 MG Tab PO SCH (09:12)
[2023-10-22] MEDS: Cyanocobalamin (Vitamin B12) 1,000 MCG Tab PO SCH (09:13)
[2023-10-22] MEDS: OLANZapine 10 MG Tab PO SCH (09:13)
[2023-10-22] MEDS: Sennosides/Docusate Sodium 50-8.6 MG Tab PO SCH (09:13)
[2023-10-22] MEDS: Enoxaparin 40 MG/0.4 ML Syringe SUBCUT SCH (14:47)
[2023-10-22] MEDS: PALIPERIDONE 6 MG PO SCH ×2 (17:32→20:40)
[2023-10-22] MEDS: atorvaSTATin 10 MG Tab PO SCH (20:44)
[2023-10-22] MEDS: Piperacillin/Tazobactam 4.5 GM in Sodium Chloride 0.9% 100 ML IV ONE (20:53)
[2023-10-23] MEDS: Piperacillin/Tazobactam 4.5 GM in Sodium Chloride 0.9% 100 ML IV SCH (01:07)
[2023-10-23 08:08] LABS: BASOPHILS PERCENT AUTO 0.2 % (0.2-1.2); EOSINOPHILS ABSOLUTE AUTO 0.4 x10^3/uL (0.0-0.5); EOSINOPHILS PERCENT AUTO 3.2 % (0.0-4.0); HEMATOCRIT 35.9 % (40.0-52.0); HEMOGLOBIN 11.8 g/dL (14.0-18.0); IMMATURE GRAN ABSOLUTE AUTO 0.02 x10^3/uL (0.00-0.07); LYMPHOCYTES ABSOLUTE AUTO 1.8 x10^3/uL (1.0-4.8); LYMPHOCYTES PERCENT AUTO 15.3 % (25.0-50.0); MEAN CORPUSCULAR HEMOGLOBIN 30.3 pg (26.0-32.0); MEAN CORPUSCULAR HGB CONC 32.9 g/dL (32.0-36.0); MEAN CORPUSCULAR VOLUME 92.3 fL (78.0-93.0); MONOCYTES ABSOLUTE AUTO 0.7 x10^3/uL (0.0-0.8); MONOCYTES PERCENT AUTO 6.1 % (2.0-11.0); NEUTROPHILS ABSOLUTE AUTO 8.7 x10^3/uL (1.8-7.7); PLATELET COUNT,PLT 312 x10^3/uL (130-400); RED BLOOD CELL COUNT 3.89 x10^6/uL (4.5-6.0); WHITE BLOOD CELL COUNT,WBC 11.6 x10^3/uL (4.0-10.0)
[2023-10-23 08:21] LABS: CREATININE 1.3 mg/dL (0.70-1.30); EST CRCL DRUG DOSING (CG) 55.9 mL/min; POTASSIUM,K 4.3 mmol/L (3.5-5.1)
[2023-10-23 08:22] LABS: ANION GAP 11.3 mmol/L (5-15)
[2023-10-24 09:18] LABS: BASOPHILS PERCENT AUTO 0.3 % (0.2-1.2); EOSINOPHILS ABSOLUTE AUTO 0.4 x10^3/uL (0.0-0.5); HEMATOCRIT 36.4 % (40.0-52.0); IMMATURE GRAN ABSOLUTE AUTO 0.03 x10^3/uL (0.00-0.07); LYMPHOCYTES ABSOLUTE AUTO 1.9 x10^3/uL (1.0-4.8); MEAN CORPUSCULAR HEMOGLOBIN 30.5 pg (26.0-32.0); MEAN CORPUSCULAR VOLUME 92.4 fL (78.0-93.0); MONOCYTES ABSOLUTE AUTO 0.5 x10^3/uL (0.0-0.8); MONOCYTES PERCENT AUTO 5.1 % (2.0-11.0); NEUTROPHILS ABSOLUTE AUTO 6.8 x10^3/uL (1.8-7.7); NEUTROPHILS PERCENT AUTO 70.3 % (50.0-80.0); PLATELET COUNT,PLT 326 x10^3/uL (130-400); RED BLOOD CELL COUNT 3.94 x10^6/uL (4.5-6.0); WHITE BLOOD CELL COUNT,WBC 9.7 x10^3/uL (4.0-10.0)
[2023-10-24 09:35] LABS: A/G RATIO 0.57; ALBUMIN 2.5 g/dL (3.4-5.0); BILIRUBIN TOTAL 0.3 mg/dL (0.2-1.0); CREATININE 1.4 mg/dL (0.70-1.30); EST CRCL DRUG DOSING (CG) 51.9 mL/min; POTASSIUM,K 4.2 mmol/L (3.5-5.1); PROTEIN TOTAL,TP 6.9 g/dL (6.4-8.2)
[2023-10-24 09:36] LABS: ANION GAP 10.2 mmol/L (5-15)
[2023-10-25 08:20] LABS: BASOPHILS PERCENT AUTO 0.1 % (0.2-1.2); EOSINOPHILS ABSOLUTE AUTO 0.4 x10^3/uL (0.0-0.5); HEMATOCRIT 36.7 % (40.0-52.0); HEMOGLOBIN 12.2 g/dL (14.0-18.0); IMMATURE GRAN ABSOLUTE AUTO 0.03 x10^3/uL (0.00-0.07); LYMPHOCYTES ABSOLUTE AUTO 2.3 x10^3/uL (1.0-4.8); LYMPHOCYTES PERCENT AUTO 23.4 % (25.0-50.0); MEAN CORPUSCULAR HEMOGLOBIN 30.8 pg (26.0-32.0); MEAN CORPUSCULAR HGB CONC 33.2 g/dL (32.0-36.0); MEAN CORPUSCULAR VOLUME 92.7 fL (78.0-93.0); MONOCYTES ABSOLUTE AUTO 0.6 x10^3/uL (0.0-0.8); MONOCYTES PERCENT AUTO 5.6 % (2.0-11.0); NEUTROPHILS ABSOLUTE AUTO 6.6 x10^3/uL (1.8-7.7); NEUTROPHILS PERCENT AUTO 66.6 % (50.0-80.0); PLATELET COUNT,PLT 355 x10^3/uL (130-400); RED BLOOD CELL COUNT 3.96 x10^6/uL (4.5-6.0)
[2023-10-25 08:40] LABS: A/G RATIO 0.59; ALBUMIN 2.6 g/dL (3.4-5.0); BILIRUBIN TOTAL 0.2 mg/dL (0.2-1.0); CALCIUM 9.1 mg/dL (8.5-10.1); CREATININE 1.2 mg/dL (0.70-1.30); EST CRCL DRUG DOSING (CG) 60.55 mL/min; POTASSIUM,K 4.1 mmol/L (3.5-5.1)
[2023-10-25 08:42] LABS: ANION GAP 11.1 mmol/L (5-15)
[2023-10-26 07:09] LABS: BASOPHILS PERCENT AUTO 0.2 % (0.2-1.2); EOSINOPHILS ABSOLUTE AUTO 0.3 x10^3/uL (0.0-0.5); EOSINOPHILS PERCENT AUTO 3.3 % (0.0-4.0); HEMATOCRIT 34.7 % (40.0-52.0); HEMOGLOBIN 11.6 g/dL (14.0-18.0); IMMATURE GRAN ABSOLUTE AUTO 0.03 x10^3/uL (0.00-0.07); LYMPHOCYTES ABSOLUTE AUTO 1.9 x10^3/uL (1.0-4.8); LYMPHOCYTES PERCENT AUTO 20.8 % (25.0-50.0); MEAN CORPUSCULAR HEMOGLOBIN 30.7 pg (26.0-32.0); MEAN CORPUSCULAR HGB CONC 33.4 g/dL (32.0-36.0); MEAN CORPUSCULAR VOLUME 91.8 fL (78.0-93.0); MONOCYTES ABSOLUTE AUTO 0.5 x10^3/uL (0.0-0.8); MONOCYTES PERCENT AUTO 5.8 % (2.0-11.0); NEUTROPHILS ABSOLUTE AUTO 6.4 x10^3/uL (1.8-7.7); NEUTROPHILS PERCENT AUTO 69.6 % (50.0-80.0); PLATELET COUNT,PLT 346 x10^3/uL (130-400); RED BLOOD CELL COUNT 3.78 x10^6/uL (4.5-6.0); WHITE BLOOD CELL COUNT,WBC 9.1 x10^3/uL (4.0-10.0)
[2023-10-26 07:16] LABS: A/G RATIO 0.61; ALBUMIN 2.5 g/dL (3.4-5.0); BILIRUBIN TOTAL 0.3 mg/dL (0.2-1.0); CALCIUM 8.7 mg/dL (8.5-10.1); CREATININE 1.3 mg/dL (0.70-1.30); EST CRCL DRUG DOSING (CG) 55.9 mL/min; POTASSIUM,K 4.3 mmol/L (3.5-5.1); PROTEIN TOTAL,TP 6.6 g/dL (6.4-8.2)
[2023-10-26 07:18] LABS: ANION GAP 11.3 mmol/L (5-15)
[2023-10-27] MEDS ORDERED: SEMAGLUTIDE 2 MG/0.75 ML SQ SCH (09:00)
== END 2023-10-26 11:20 | DRG 682 ==
LOC: VM.ED 17:39 → VM.MS 19:13
PROVIDERS: ADMIT Internal Medicine; ATTEND Internal Medicine
DX: S81.802A Unspecified open wound, left lower leg, initial encounter (principal); N17.9 Acute kidney failure, unspecified; I10 Essential (primary) hypertension; L89.223 Pressure ulcer of left hip, stage 3; E66.9 Obesity, unspecified; E11.9 Type 2 diabetes mellitus without complications; L03.116 Cellulitis of left lower limb; Z68.44 Body mass index [BMI] 60.0-69.9, adult; X58.XXXA Exposure to other specified factors, initial encounter; Z16.11 Resistance to penicillins; E78.00 Pure hypercholesterolemia, unspecified; K59.09 Other constipation; N40.0 Benign prostatic hyperplasia without lower urinary tract symptoms; M19.90 Unspecified osteoarthritis, unspecified site; M54.9 Dorsalgia, unspecified; G89.29 Other chronic pain; F41.9 Anxiety disorder, unspecified; I89.0 Lymphedema, not elsewhere classified; I12.9 Hypertensive chronic kidney disease with stage 1 through stage 4 chronic kidney disease, or unspecified chronic kidney disease; E11.22 Type 2 diabetes mellitus with diabetic chronic kidney disease; N18.9 Chronic kidney disease, unspecified; E66.01 Morbid (severe) obesity due to excess calories; F25.9 Schizoaffective disorder, unspecified; Z66 Do not resuscitate; B95.61 Methicillin susceptible Staphylococcus aureus infection as the cause of diseases classified elsewhere; L89.029 Pressure ulcer of left elbow, unspecified stage; Z88.8 Allergy status to other drugs, medicaments and biological substances; Z79.899 Other long term (current) drug therapy; Z98.890 Other specified postprocedural states; Z87.891 Personal history of nicotine dependence
CPT/HCPCS: 36415; 51798; 80048; 80053; 82550; 82947; 83605; 85025; 85652; 86140; 87040; 87070; 97161-GP; 97165-GO; 99232; 99284; 99285; A9270-GY; J0696; J1650; J2543; J3490; J7030